=== PATIENT | female | born 1960 | race Caucasian/White ===

== ENCOUNTER 2016-11-16 22:46 | Emergency (ER) | payer OTHER ==
[2016-11-16 23:05] VITALS: BP 145/104; PULSE 99; RESP 18; TEMP 98.2; O2SAT 94
[2016-11-16] MEDS ORDERED: HYDROmorphONE/DILAUDID 1 MG/ML INJ IVP ONE (23:29)
[2016-11-16] MEDS ORDERED: DEXAMETHASONE 4 MG/ML VIAL IVP ONE (23:30)
[2016-11-16] MEDS ORDERED: KETOROLAC 15 MG/1 ML SDV IVP ONE (23:30)
--- NOTE | 2016-11-16 23:35 | EDPHY ---
H & P Stated Complaint: bilat le pain Time Seen by Provider: 11/16/16 23:33 HPI/ROS: HPI: This is a 56-year-old female who presents with Chief Complaint: Bilateral leg pain Location: Bilateral legs Quality: Aching, sharp at times Duration: Several days Signs and Symptoms: No bleeding, + bilateral radiation from lumbar down both legs, no numbness, no weakness, no tingling, no incontinence, no decreased range of motion, no dysuria, no nausea, no vomiting, + chronic abdominal pain, denies headache to me Timing: Acute on chronic Severity: 10/22 Context: Patient presents with bilateral leg achiness and shortness at times that starts in her lower back. This is a chronic problem. No new injury. After further questioning patient admits that she is out of her chronic pain narcotic medications. She is followed by [facility]. She is scheduled to have a "pain pump" sometime this month. She is concerned as her blood pressure elevates when she goes through withdrawal. She is planning on calling her pain management doctor tomorrow. Modifying Factors: Comment: ROS: Constitutional: No fever, no chills, no weight loss Eyes: No blurred vision Respiratory: No shortness of breath, no cough Cardiovascular: No chest pain Gastrointestinal: No nausea, no vomiting no diarrhea Genitourinary: No dysuria Extremities: No myalgias Neurologic: No weakness, no numbness Skin: No rashes Hematologic: No bruising, no bleeding MEDICAL/SURGICAL/SOCIAL HISTORY: Chronic pain, pelvic adhesions, endometriosis, vasculitis, hypertension Source: Patient, Family Exam Limitations: No limitations - Personal History LMP (Females 10-55): Post Menopausal Current Tetanus/Diphtheria Vaccine: No Current Tetanus Diphtheria and Acellular Pertussis (TDAP): No - Medical/Surgical History Hx Asthma: No Hx Chronic Respiratory Disease: No Hx Diabetes: No Hx Cardiac Disease: No Hx Renal Disease: No Hx Cirrhosis: No Hx Alcoholism: No Hx HIV/AIDS: No Hx Splenectomy or Spleen Trauma: No Other PMH: shldr surgery. tonsils. pilonoidal cyst. endometriosis. lupus - Social History Smoking Status: Current every day smoker - Physical Exam Exam: CONSTITUTIONAL: Chronically ill-appearing, talkative, active, white female awake and alert, no obvious distress HEENT: Atraumatic and normocephalic, PERRL, EOMI. Tympanic membranes clear. Oropharynx clear, no exudate and moist pink mucosa. Airway patent. No lymphadenopathy. No meningismus. Cardiovascular: Normal S1/S2, regular rate, regular rhythm, without murmur rub or gallop. PULMONARY/CHEST: Symmetrical and nontender. Clear to auscultation bilaterally Good air movement. No accessory muscle usage. ABDOMEN: Soft, nondistended, nontender, no rebound, no guarding, no peritoneal signs, no masses or organomegaly. No CVAT. EXTREMITIES: 2/2 pulses, no deformities, no clubbing, no cyanosis or edema. BACK: Mild bilateral paraspinous muscle reproducible tenderness; no paraspinous spasm; tendon reflexes 2/2. Mild pain with bilateral straight leg raise. Flexion/extension/rotation intact. Able to do sit up without difficulty. Able to walk on heels and toes. NEUROLOGICAL: no focal neuro deficits. GCS 15. SKIN: Warm and dry, no erythema. no rash. Good capillary refill. Constitutional: Initial Vital Signs Temperature (C) 36.8 C 11/16/16 22:59 Heart Rate 99 11/16/16 22:59 Respiratory Rate 18 11/16/16 22:59 Blood Pressure 145/104 H 11/16/16 22:59 O2 Sat (%) 94 11/16/16 22:59 O2 Delivery Mode Room Air Allergies/Adverse Reactions: Sulfa (Sulfonamide Antibiotics) Allergy (Severe, Verified 02/21/10 15:38) Nausea, flu symptoms Tetanus Vaccines and Toxoid [Tetanus] Allergy (Severe, Verified 02/21/10 15:38) Nausea, flu symptoms cefazolin [Cefazolin] Allergy (Intermediate, Verified 02/21/10 15:38) Rash FLU SHOT Allergy (Severe, Uncoded 02/21/10 15:38) Nausea, flu symptoms all preservatives Allergy (Unknown, Uncoded 02/21/10 15:38) Rash Home Medications: Medication Instructions Recorded OXYCODONE HCL 10/26/09 Losartan-Hctz 100-25 mg Tab 11/16/16 Oxycontin 11/16/16 Terazosin HCl 11/16/16 Xanax 11/16/16 Medical Decision Making - Diagnostics Imaging Results: Imaging Impressions Lumbar Spine X-Ray 11/16/16 23:31 Impression: 1. Moderate degenerative disk disease at L5-S1 stable in appearance. ED Course/Re-evaluation: Lumbar sacral x-ray, IV medications I explained to the patient that the ER will not prescribe chronic pain medications as she is followed by pain management. Adequate relief with medications given No signs of withdrawal/neurovascular compromise/hypertensive emergency Differential Diagnosis: Back pain including but not limited to muscular pain, herniated disc, spine fracture, intra-abdominal causes and urinary tract infection. - Data Points Medications Given: Discontinued Medications Dexamethasone (Decadron Injection) 8 mg IVP EDNOW ONE Stop: 11/16/16 23:31 Last Admin: 11/17/16 00:22 Dose: Not Given Dexamethasone (Decadron) 8 mg PO EDNOW ONE Stop: 11/17/16 00:24 Last Admin: 11/17/16 00:27 Dose: 8 mg Hydromorphone HCl (Dilaudid) 1 mg IVP EDNOW ONE Stop: 11/16/16 23:30 Last Admin: 11/17/16 00:22 Dose: Not Given Hydromorphone HCl (Dilaudid) 1 mg IM EDNOW ONE Stop: 11/17/16 00:24 Last Admin: 11/17/16 00:28 Dose: 1 mg Ketorolac Tromethamine (Toradol) 15 mg IVP EDNOW ONE Stop: 11/16/16 23:31 Last Admin: 11/17/16 00:22 Dose: Not Given Ketorolac Tromethamine (Toradol) 15 mg IM EDNOW ONE Stop: 11/17/16 00:24 Last Admin: 11/17/16 00:29 Dose: 15 mg Departure - Departure Disposition: Home, Routine, Self-Care Clinical Impression: Has run out of medications, Lumbar degenerative disc disease Chronic pain Qualifiers: Chronic pain type: chronic pain syndrome Qualified Code(s): G89.4 - Chronic pain syndrome Condition: Good Instructions: Chronic Back Pain (ED), Chronic Abdominal Pain (ED) Additional Instructions: Follow-up with [place] [facility] and pain management as soon as possible. Referrals: [facility],. [Clinic] - As per Instructions
[2016-11-17] MEDS ORDERED: KETOROLAC 30 MG/1 ML SDV IM ONE (00:23)
[2016-11-17] MEDS ORDERED: DEXAMETHASONE 4 MG TAB PO ONE (00:23)
[2016-11-17] MEDS ORDERED: HYDROmorphONE/DILAUDID 1 MG/ML INJ IM ONE (00:23)
== END 2016-11-17 00:35 | disposition home or self-care (01) ==
DX: M51.36 Other intervertebral disc degeneration, lumbar region (principal); G89.4 Chronic pain syndrome; F17.200 Nicotine dependence, unspecified, uncomplicated; I10 Essential (primary) hypertension; Z76.0 Encounter for issue of repeat prescription
CPT/HCPCS: J1100; J1170; J1885

== ENCOUNTER → 2017-11-12 | Outpatient (CLI) | payer OTHER | LOC: CIMAGING 17:02 | PROVIDERS: ATTEND Family Medicine | DX: R60.0 Localized edema (principal) | CPT/HCPCS: 93971-PO ==